=== PATIENT | male | born 1950 | race Caucasian/White ===

== ENCOUNTER 2017-05-06 10:54 | Outpatient (CLI) | payer OTHER ==
[~2017-05-06 10:54] MED LIST: ATENOLOL100 MG PO; ATORVASTATIN CA20 MG PO; COLACE100 MG PO; HYCET1 ML PO; LORAZEPAM1 MG PO; LOSARTAN POTASS50 MG PO; METFORMIN HCL500 MG PO; NORCO1 TA1 PO; PERCOCET1 TA1 PO; VICODIN EQUIVAL1 TAB PO
--- NOTE | 2017-05-06 13:16 | DIAGNOSTIC IMAGING REPORT ---
PROCEDURE: US ABDOMEN VASCULAR-AAA INDICATION: FAM HX: AAA TECHNIQUE: Hickman scale and color Doppler sonographic images of the abdomen were obtained. COMPARISON: None. FINDINGS: PROXIMAL ABDOMINAL AORTA: 2.1 cm MIDABDOMINAL AORTA: 1.8 cm DISTAL ABDOMINAL AORTA: 1.8 cm RIGHT COMMON ILIAC ARTERY: 1.2 send LEFT COMMON ILIAC ARTERY: 1.2 cm IMPRESSION: 1. No evidence of aneurysm.
--- NOTE | 2017-05-06 13:16 | DIAGNOSTIC IMAGING REPORT ---
PROCEDURE: CT THORAX WITH CONTRAST INDICATION: PULMONARY NODULE, LEFT TECHNIQUE: 125 ml of Isovue 300 was injected intravenously and axial images were obtained of the chest with coronal and sagittal reformations. COMPARISON: Chest x-ray from the [facility] 10/25/2016. FINDINGS: 7 mm calcified left lower lobe granuloma. 3 mm right lower lobe (image 32), 3 mm peripheral right lower lobe nodule (image 36) and 6 mm right middle lobe (image 37) nodules. Calcified left hilar lymph nodes. No effusion. Thyroid nodules, largest 9 mm. Mild atherosclerosis of the aorta. Coronary atherosclerosis. Heart size is normal. Several small gallstones. Calcified hepatic and splenic granulomas. Moderate degenerative changes of the spine. IMPRESSION: 1. 7 mm calcified left lower lobe granuloma 2. Few additional noncalcified pulmonary nodules, likely a granuloma/post inflammatory changes 3. Calcified hepatic and splenic granulomas 4. Cholelithiasis
== END 2017-05-06 23:00 ==
LOC: US SRH 10:54
DX: R91.1 Solitary pulmonary nodule (principal); Z82.49 Family history of ischemic heart disease and other diseases of the circulatory system